=== PATIENT | female | born 1955 | race Caucasian/White ===

== ENCOUNTER → 2024-07-29 | Outpatient (CLI) | payer MEDICARE, SELFPAY ==
[2024-07-29 12:41] LABS: Hematocrit 39.7 % (37-47); Hemoglobin 13.1 g/dL (12.0-15.0); Mean Corpuscular Hgb 30.5 pg (27.0-32.0); Mean Corpuscular Volume 92.5 fL (81-99); Mean Platelet Vol. 9.3 fl (6.2-12.0); Platelet Count 316 K/mm3 (150-450); RBC Distribution Width CV 12.6 % (11.6-14.6); RBC Distribution Width SD 42.5 fl (35.1-43.9); Red Blood Count 4.29 M/mm3 (4.2-5.4); White Blood Count 5.7 K/mm3 (4.4-11.0)
[2024-07-29 14:01] LABS: ALB/GLOB Ratio 1.3 RATIO (0.9-2.4); AST(SGOT) 38 U/L (<=31); Alanine Aminotransfer ALT/SGPT 51 U/L (<=34); Albumin, Serum 4.2 g/dL (3.4-4.8); Alkaline Phosphatase 101 U/L (35-104); Anion Gap 12 (5-15); BUN 12 mg/dL (4-19); BUN/Creat Ratio 18.3 RATIO (10-20); Calcium,Total 9.8 mg/dL (7.6-11.0); Carbon Dioxide 23.7 mmol/L (21.0-32.0); Chloride 102 mmol/L (98-108); Creatinine, Serum 0.66 mg/dL (0.70-1.20); EST Glomerular Filtration Rate 95 (>60); Globulin 3.2 g/dL (2.2-4.2); Glucose 105 mg/dL (70-99); Potassium 3.9 mmol/L (3.3-5.1); Protein, Total 7.4 g/dL (5.9-8.4); Sodium Level 138 mmol/L (133-145); Vitamin B12 386 pg/mL (180-914); Vitamin D,25 Hydroxy 33.4 ng/mL (30-100)
== END | disposition home or self-care (01) ==
LOC: VSLAB 09:49
PROVIDERS: PCP Nurse Practitioner Family; Visit Provider Nurse Practitioner Family
DX: R42 Dizziness and giddiness (principal); R53.83 Other fatigue; E55.9 Vitamin D deficiency, unspecified; R73.9 Hyperglycemia, unspecified
CPT/HCPCS: 36415; 80053; 82306; 82607; 83036; 84443; 85027

== ENCOUNTER → 2024-11-25 | Outpatient (CLI) | payer MEDICARE, SELFPAY ==
[2024-11-25 11:13] LABS: Hematocrit 40.3 % (37-47); Hemoglobin 13.7 g/dL (12.0-15.0); Immature Granulocytes Count 0.020 X10^3/uL (0.0-0.0); Mean Corp Hgb Conc 34.0 g/dL (32-36); Mean Corpuscular Volume 91.2 fL (81-99); Mean Platelet Vol. 9.1 fl (6.2-12.0); NRBC Flagged by Analyzer 0 % (0-5); Platelet Count 359 K/mm3 (150-450); RBC Distribution Width CV 12.7 % (11.6-14.6); RBC Distribution Width SD 41.8 fl (35.1-43.9); Red Blood Count 4.42 M/mm3 (4.2-5.4); White Blood Count 5.9 K/mm3 (4.4-11.0)
[2024-11-25 12:06] LABS: AST(SGOT) 27 U/L (<=31); Alanine Aminotransfer ALT/SGPT 31 U/L (<=34); Albumin, Serum 4.3 g/dL (3.4-4.8); Alkaline Phosphatase 93 U/L (35-104); Anion Gap 10 (5-15); BUN 11 mg/dL (4-19); BUN/Creat Ratio 17.6 RATIO (10-20); Calcium,Total 9.6 mg/dL (7.6-11.0); Carbon Dioxide 24.8 mmol/L (21.0-32.0); Chloride 104 mmol/L (98-108); Globulin 3.2 g/dL (2.2-4.2); Glucose 98 mg/dL (70-99); Potassium 4.4 mmol/L (3.3-5.1); Vitamin D,25 Hydroxy 32.3 ng/mL (30-100)
[2024-11-25 20:42] LABS: Cholesterol 240 mg/dL (<=200); Low Density Lipoprotein Calc. 133 mg/dL; Triglycerides 237 mg/dL; Very Low Density Lipoprotein 47 mg/dL (5-40); cholesterol:hdl ratio screen 4.02
== END | disposition home or self-care (01) ==
LOC: VSLAB 10:27
PROVIDERS: PCP Nurse Practitioner Family; Visit Provider Nurse Practitioner Family
DX: R73.03 Prediabetes (principal); E55.9 Vitamin D deficiency, unspecified; R74.01 Elevation of levels of liver transaminase levels
CPT/HCPCS: 36415; 80053; 80061; 82306; 85025